=== PATIENT | female | born 1940 | race Caucasian/White ===

== ENCOUNTER 2016-10-20 09:39 | Inpatient (IN) | payer MEDICARE, OTHER ==
[2016-10-20 08:26] LABS: BILIRUBIN NEGATIVE (NEGATIVE); BLOOD NEGATIVE Ery/uL (NEGATIVE); CLARITY CLEAR (CLEAR); COLOR YELLOW (YELLOW); GLUCOSE (U) NORMAL (NORMAL); KETONE (U) NEGATIVE (NEGATIVE); LEUKOCYTES NEGATIVE Leu/uL (NEGATIVE); NITRITE NEGATIVE (NEGATIVE); PROTEIN NEGATIVE (NEGATIVE); UROBILINOGEN 0.2 mg/dL (0.2-1.0)
[2016-10-20 08:33] LABS: BACTERIA TRACE; SQUAMOUS EPITHELIAL CELLS RARE; URINARY RBC RARE; URINARY WBC RARE
[2016-10-21 05:19] LABS: HCT 35.5 % (37.0-47.0); HGB 11.5 g/dl (12.5-16.0); MCH 29.4 pg (25.0-31.0); MCHC 32.4 g/dL (32.0-36.0); MCV 90.8 fL (78.0-100.0); MPV 10.9 fL (6.0-9.5); RBC 3.91 M/uL (4.20-5.40); RDW 13.8 % (11.5-14.0); WBC 7.1 K/uL (4.0-10.5)
[2016-10-21 05:38] LABS: CREATININE 0.7 mg/dL (0.5-1.0)
[2016-10-22 04:34] LABS: HCT 35.4 % (37.0-47.0); HGB 11.4 g/dl (12.5-16.0); MCH 29.3 pg (25.0-31.0); MCHC 32.2 g/dL (32.0-36.0); MPV 10.8 fL (6.0-9.5); RBC 3.89 M/uL (4.20-5.40); RDW 13.6 % (11.5-14.0); WBC 8.5 K/uL (4.0-10.5)
[2016-10-23 07:38] LABS: HCT 33.7 % (37.0-47.0); HGB 10.9 g/dl (12.5-16.0); MCH 29.4 pg (25.0-31.0); MCHC 32.3 g/dL (32.0-36.0); MCV 90.8 fL (78.0-100.0); MPV 11.6 fL (6.0-9.5); RBC 3.71 M/uL (4.20-5.40); RDW 13.5 % (11.5-14.0); WBC 7.5 K/uL (4.0-10.5)
[2016-10-23] MEDS ORDERED: TUMS200 MG PO (14:56)
[2016-10-23] MEDS ORDERED: BISOPROLOL FUMAR5 MG PO (14:56)
[2016-10-23] MEDS ORDERED: SYNTHROID50 MCG PO (14:56)
[2016-10-23] MEDS ORDERED: VITAMIN D1000 UNI1 PO (14:57)
[2016-10-23] MEDS ORDERED: LUTEIN6 M1 PO (14:57)
[2016-10-23] MEDS ORDERED: CERTAGEN1 EACH PO (14:57)
[2016-10-23] MEDS ORDERED: TRAMADOL HCL50 MG PO (14:58)
[2016-10-23] MEDS ORDERED: BIOTIN10000 MCG PO (14:58)
[2016-10-23] MEDS ORDERED: ASPIRIN EC325 MG PO (14:58)
[2016-10-23] MEDS ORDERED: DURAGESIC 25MC25 MCG TD (14:58)
== END 2016-10-23 15:10 | disposition home or self-care (01) | DRG 483 ==
LOC: FMS 09:39
PROVIDERS: Internal Medicine; ADMIT Orthopaedic Surgery
PROC: 0LS30ZZ Reposition Right Upper Arm Tendon, Open Approach (ICD-10-PCS; 2016-10-20)
PROC: 0RRJ00Z Replacement of Right Shoulder Joint with Reverse Ball and Socket Synthetic Substitute, Open Approach (ICD-10-PCS; principal; 2016-10-20 07:00)
DX: M19.011 Primary osteoarthritis, right shoulder (principal); I10 Essential (primary) hypertension; K21.9 Gastro-esophageal reflux disease without esophagitis; R00.0 Tachycardia, unspecified
CPT/HCPCS: 36415; 73020; 80048; 81001; 86850; 86900; 86901; 88305; 88311; 94010; 94762; 97116; 97163; 97166; 97530; 97530-GP; 97535; C1776; J0131; J1170; J2405; J2704; J2795; J3010

== ENCOUNTER → 2022-02-11 | Day surgery (SDC) | payer OTHER ==
[~2022-02-11] VITALS: Ht 160 cm; Wt 68.2 kg
[~2022-02-11] MED LIST: ACETAMINOPHEN500 M1 PO; ASPIRIN EC325 MG PO; BIOTIN10000 MCG PO; BISOPROLOL FUMAR5 MG PO; CERTAGEN1 EACH PO; DILAUDID2 MG PO; DITROPAN5 MG PO; DURAGESIC 25MC25 MCG TD; FEOSOL325 MG PO; HYDROCODON-ACE1 EAC2 PO; LUTEIN6 M1 PO; LYRICA25 M1 PO; MULTIVITAMINS1 EAC1 PO; NORCO 5-325 TA1 EACH PO; NORCO 5/3251 EACH PO; OCUVITE EYE HE1 EACH PO; OXYCODONE-ACET1 EAC1 PO; PHENERGAN25 M1 PO; PRADAXA150 MG PO; PROBIOTIC1 EAC6 PO; REFRESH TEARS15 ML EYEBOTH; ROBAXIN500 MG PO; SALINE NASAL SP88 M1; SYNTHROID50 MCG PO; TRAMADOL HCL50 MG PO; TUMS200 MG PO; VENTOLIN HFA IN18 GM INH; VITAMIN D1000 UNI1 PO; VITAMIN D310 MC1 PO; XARELTO10 MG PO; ZOFRAN4 MG PO
[2022-02-11 10:58] LABS: HCT 42.3 % (37.0-47.0); HGB 13.7 g/dl (12.5-16.0); MCH 28.8 pg (25.0-31.0); MCHC 32.4 g/dL (32.0-36.0); MCV 89.1 fL (78.0-100.0); MPV 10.1 fL (6.0-9.5); RBC 4.75 M/uL (4.20-5.40); RDW 14.4 % (11.5-14.0); WBC 7.8 K/uL (4.0-10.5)
[2022-02-11 11:33] LABS: ALBUMIN 3.9 g/dL (3.4-5.0); BILIRUBIN - TOTAL 0.5 mg/dL (0.2-1.0); BUN/CREAT RATIO (CALC) 27.8 RATIO; CREATININE 0.54 mg/dL (0.51-0.95); GLOBULIN (CALCULATION) 3.1 g/dL; POTASSIUM 3.7 mmol/L (3.5-5.1)
== END | disposition home or self-care (01) ==
LOC: FAS 10:16
PROVIDERS: Surgery
DX: D17.21 Benign lipomatous neoplasm of skin and subcutaneous tissue of right arm (principal); I10 Essential (primary) hypertension; J45.909 Unspecified asthma, uncomplicated; K21.9 Gastro-esophageal reflux disease without esophagitis; E03.9 Hypothyroidism, unspecified; Z79.899 Other long term (current) drug therapy; Z88.1 Allergy status to other antibiotic agents; Z88.2 Allergy status to sulfonamides; Z88.5 Allergy status to narcotic agent; Z88.8 Allergy status to other drugs, medicaments and biological substances
CPT/HCPCS: 36415; 80053; J1170; J1642; J1885; J2405; J2550; J2704; J3010; J7120